=== PATIENT | male | born 1995 | race Caucasian/White ===

== ENCOUNTER 2020-10-06 09:21 | Day surgery (SDC) | payer OTHER ==
[2020-10-06] MEDS ORDERED: fentaNYL citrate 0.05 MG/ML VIAL ONE (11:50)
[2020-10-06] MEDS ORDERED: diphenhydrAMINE 50 MG/ML VIAL ONE (11:50)
[2020-10-06] MEDS ORDERED: MIDAZOLAM 5 MG/5 ML VIAL ONE (11:50)
== END 2020-10-06 13:00 | disposition home or self-care (01) ==
LOC: MDS 09:21 → MMU 10:56 → MDS 13:00
PROVIDERS: ATTEND Internal Medicine Gastroenterology
DX: R11.2 Nausea with vomiting, unspecified (principal); K31.84 Gastroparesis; K20.90 Esophagitis, unspecified without bleeding; K44.9 Diaphragmatic hernia without obstruction or gangrene; E08.36 Diabetes mellitus due to underlying condition with diabetic cataract; Z79.4 Long term (current) use of insulin; Z79.899 Other long term (current) drug therapy
CPT/HCPCS: J1200; J2250; J3010